=== PATIENT | male | born 1980 | race Caucasian/White ===

== ENCOUNTER → 2018-04-11 | Outpatient (REF) | payer OTHER ==
[2018-04-11 14:39] LABS: APPEARANCE, URINE CLEAR (CLEAR); BACTERIA, URINE AUTO NEGATIVE (NEGATIVE); BILIRUBIN, URINE AUTO NEGATIVE (NEGATIVE); BLOOD, URINE BLOOD NEGATIVE (NEGATIVE); COLOR, URINE STRAW (YELLOW); GLUCOSE, URINE (UA) AUTO NEGATIVE (NEGATIVE); KETONE, URINE AUTO NEGATIVE (NEGATIVE); LEUKOCYTE ESTERASE, URINE AUTO NEGATIVE (NEGATIVE); NITRITE, URINE AUTO NEGATIVE (NEGATIVE); PROTEIN, URINE AUTO NEGATIVE (NEGATIVE); RBC, URINE AUTO 0 /HPF (0-3); SQUAMOUS EPITHELIAL CELL UR AU 0 /HPF (0-6); UROBILINOGEN, URINE AUTO 0.2 mg/dL (0.0-2.0); WBC, URINE AUTO 0 /HPF (0-3)
== END ==
LOC: M SMT 12:33
DX: R39.15 Urgency of urination (principal); R35.0 Frequency of micturition

== ENCOUNTER → 2018-06-04 | Outpatient (CLI) | payer OTHER ==
[2018-06-04 14:03] LABS: PSA SCREENING 0.27 NG/ML (< 4.0)
== END ==
LOC: M SMT 08:21
DX: E29.1 Testicular hypofunction (principal); Z12.5 Encounter for screening for malignant neoplasm of prostate
CPT/HCPCS: G0103

== ENCOUNTER → 2018-09-25 | Outpatient (CLI) | payer OTHER ==
[2018-09-25 13:50] LABS: HEMATOCRIT 48.1 % (42.0-52.0); HEMOGLOBIN 15.9 g/dl (13.5-17.5)
[2018-09-27 00:07] LABS: TESTOSTERONE FREE (DIRECT) 14.1 pg/mL (6.8-21.5)
== END ==
LOC: M SMT 08:20
PROVIDERS: ATTEND Nurse Practitioner Family
DX: E29.1 Testicular hypofunction (principal)

== ENCOUNTER → 2019-04-08 | Outpatient (REF) | payer OTHER ==
[2019-04-08 18:04] LABS: HEMATOCRIT 48.8 % (42.0-52.0)
[2019-04-08 18:16] LABS: ALBUMIN 4.4 GM/DL (3.2-5.2); BILIRUBIN,DIRECT 0.2 MG/DL (0.0-0.2); BILIRUBIN,TOTAL 0.8 MG/DL (0.2-1.0); TOTAL PROTEIN 7.4 GM/DL (6.4-8.2)
[2019-04-11 00:06] LABS: TESTOSTERONE FREE (DIRECT) 25.5 pg/mL (6.8-21.5)
== END ==
LOC: M SFHCLERA 11:19
PROVIDERS: ATTEND Nurse Practitioner Family
DX: Z12.5 Encounter for screening for malignant neoplasm of prostate (principal); E29.1 Testicular hypofunction
CPT/HCPCS: 80076; 84402; 84403; 85014; 85018; G0103

== ENCOUNTER → 2020-04-28 | Outpatient (CLI) | payer OTHER ==
--- NOTE | 2020-05-19 09:10 | REP ---
TRIPLE PHASE BONE SCAN ANKLES AND FEET HISTORY: Pain base of left fifth metatarsal and tarsal joints. Following the intravenous administration of 21.7 mCi Technetium-99m MDP, the patients ankles and feet and imaged in the flow phase in the anterior and posterior projections. There is mild increased blood flow to the region of the left foot. Immediate blood pool and four delayed images are performed of the ankles and feet in various projections. There is diffuse increased blood pooling in the left foot. Delayed images show mild focal increased uptake in the inferior calcaneus. There is mild diffuse periarticular uptake of the intertarsal and tarsometatarsal joints. There is minimal increased uptake at the metatarsophalangeal and interphalangeal joints. There is no definite scintigraphic evidence of occult fracture. IMPRESSION: Mild increased blood flow and diffuse blood pooling in the left foot. There is mild increased periarticular uptake in the left foot, specifically periarticular uptake in the intertarsal and tarsometatarsal joints, as well as metatarsophalangeal and interphalangeal joints. There is mild increased uptake in the inferior calcaneus. The findings may represent stress-related changes at the joints. No compelling scintigraphic evidence of occult fracture. MTDD
== END ==
LOC: M RAD 08:27
PROVIDERS: ATTEND Podiatrist Foot & Ankle Surgery
DX: M25.572 Pain in left ankle and joints of left foot (principal)
CPT/HCPCS: 78315; A9503

== ENCOUNTER → 2020-07-18 | Outpatient (CLI) | payer OTHER | LOC: M LABSMTC 13:26 | PROVIDERS: ATTEND Family Medicine | DX: Z20.828 Contact with and (suspected) exposure to other viral communicable diseases (principal) ==